=== PATIENT | female | born 1995 | race American Indian/Alaskan Native ===

== ENCOUNTER 2018-03-09 15:02 | Inpatient (IN) | payer MEDICAID ==
[2018-03-09 15:39] LABS: Basophils # (Auto) 0.1 K/mm3 (0.0-0.1); Basophils % (Auto) 0.8 % (0.0-1.8); Eosinophils % (Auto) 0.1 % (0.0-4.3); Hematocrit 31.9 % (30.3-42.9); Hemoglobin 10.4 gm/dl (10.1-14.3); Lymphocytes # (Auto) 1.4 K/mm3 (1.2-5.4); Lymphocytes % (Auto) 14.7 % (13.4-35.0); Mean Corpuscular HGB Conc 33 % (30-34); Mean Corpuscular Volume 73 fl (79-97); Monocytes # (Auto) 0.7 K/mm3 (0.0-0.8); Monocytes % (Auto) 7.2 % (0.0-7.3); Platelet Count 254 K/mm3 (140-440); Red Blood Count 4.35 M/mm3 (3.65-5.03); Red Cell Distribution Width 16.4 % (13.2-15.2)
[2018-03-09 15:47] LABS: Mean Corpuscular Hemoglobin 24 pg (28-32)
[2018-03-09 15:57] LABS: INR 0.94 (0.87-1.13)
[2018-03-09 15:58] LABS: Partial Thromboplastin Time 24.7 Sec. (24.2-36.6)
[2018-03-09 16:21] LABS: BUN/Creatinine Ratio 14; Blood Urea Nitrogen 10 mg/dL (7-17); Calcium 8.8 mg/dL (8.4-10.2); Hemolysis Index 30
[2018-03-09] MEDS ORDERED: BOOSTRIX IM ONE (16:24)
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
[2018-03-09] MEDS ORDERED: ZOFRAN IV PRN (17:56)
[2018-03-09] MEDS ORDERED: SODIUM CHLORIDE FLUSH SYRINGE 10 ML IV PRN (17:56)
[2018-03-09] MEDS ORDERED: PROVENTIL IH PRN (17:56)
[2018-03-09] MEDS ORDERED: TYLENOL PO PRN (17:56)
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
[2018-03-09] MEDS: PERCOCET 5/325 PO PRN (20:07)
[2018-03-10] MEDS: SODIUM CHLORIDE FLUSH SYRINGE 10 ML IV SCH ×3 (00:23→22:44)
[2018-03-10] MEDS: PERCOCET 5/325 PO PRN ×2 (00:23→19:47)
[2018-03-10 03:13] LABS: Bilirubin,Urine NEG (Negative); Blood,Urine NEG (Negative); Color,Urine Yellow (Yellow); Mucus,Urine FEW /HPF; Protein,Urine <15 mg/dL mg/dL (Negative); Urobilinogen,Urine < 2.0 mg/dL (<2.0)
[2018-03-10 03:16] LABS: Benzodiazepines Screen,Urine PRESUMPTIVE NEGATIVE; Cannabinoid Screen,Urine PRESUMPTIVE NEGATIVE; Cocaine Screen,Urine PRESUMPTIVE NEGATIVE; Methadone Screen,Urine PRESUMPTIVE NEGATIVE; Opiate Screen,Urine PRESUMPTIVE NEGATIVE
[2018-03-10 03:34] LABS: Amphetamine Screen,Urine PRESUMPTIVE POSITIVE
--- NOTE | 2018-03-10 08:23 | XRay Report ---
Chest 2 views: Compared to 03/09/18. History: Right pneumothorax 20%. Findings: Normal cardiomediastinal silhouette. Trachea is midline. No consolidation, pneumothorax or pleural effusion. Impression: No definite evidence of pneumothorax is noted.
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
[2018-03-10] MEDS ORDERED: TRIPLE ANTIBIOTIC TP ONE (15:03)
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
--- NOTE | 2018-03-10 15:46 | Event Note ---
Date: 03/10/[address] scanners and one of the CT scanners is down for repairs. The other CT scanner cannot be used for procedures while the other CT scanner is being repaired or the hospital will need to go on diversion. IR cannot perform any CT guided procedures at this time. Recommend alternative arrangements be made for chest tube insertion, such as by pulmonology or general surgery. I Contacted Dr. Garcia to inform him of the issue.
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
[2018-03-11 05:08] LABS: Basophils % (Auto) 0.5 % (0.0-1.8); Eosinophils # (Auto) 0.2 K/mm3 (0.0-0.4); Eosinophils % (Auto) 2.8 % (0.0-4.3); Hematocrit 30.5 % (30.3-42.9); Hemoglobin 9.7 gm/dl (10.1-14.3); Lymphocytes # (Auto) 2.3 K/mm3 (1.2-5.4); Lymphocytes % (Auto) 37.2 % (13.4-35.0); Mean Corpuscular HGB Conc 32 % (30-34); Mean Corpuscular Volume 75 fl (79-97); Monocytes # (Auto) 0.5 K/mm3 (0.0-0.8); Monocytes % (Auto) 8.4 % (0.0-7.3); Platelet Count 230 K/mm3 (140-440); Red Blood Count 4.07 M/mm3 (3.65-5.03); Red Cell Distribution Width 16.7 % (13.2-15.2)
[2018-03-11 05:09] LABS: Mean Corpuscular Hemoglobin 24 pg (28-32)
--- NOTE | 2018-03-11 09:16 | XRay Report ---
Chest 2 views: Compared to 03/10/18. History: Right pneumonia. Findings: Normal cardiomediastinal silhouette the trachea is midline. No consolidation, pneumothorax or pleural effusion. Impression: No acute cardiopulmonary findings.
[2018-03-11] MEDS: SODIUM CHLORIDE FLUSH SYRINGE 10 ML IV SCH ×2 (10:00→21:51)
--- NOTE | 2018-03-11 12:23 | Progress Note ---
Assessment and Plan Pt status quo. reviewed CxR pneumo still present. essentially unchanged. pt however does c/ o of some SOB on ambulation IR note noted. Can't insert Heimlich tube secondary to CT being down Pt really doesn't warrant chest tube and should do well with Heimlich rec - consult pulmonary for Heimlich tube placement ankle x-rays - no fx noted Objective Vital Signs - 12hr 03/11/18 03/11/18 03/11/18 03:54 07:55 11:43 Temperature 98.3 F 97.8 F 97.9 F Pulse Rate 60 57 L 60 Respiratory 18 20 18 Rate Blood Pressure 118/73 110/66 97/43 O2 Sat by Pulse 97 99 98 Oximetry - Labs 03/11/18 04:11 03/09/18 15:32
[2018-03-11] MEDS: PERCOCET 5/325 PO PRN (15:24)
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
[2018-03-12] MEDS: PERCOCET 5/325 PO PRN (09:58)
[2018-03-12] MEDS: SODIUM CHLORIDE FLUSH SYRINGE 10 ML IV SCH ×2 (10:02→22:26)
--- NOTE | 2018-03-12 10:49 | Progress Note ---
Assessment and Plan Pt resting comfortably in bed. still not able to ambulate secondary to L ankle pain and SOB on excertion no pulm eval noted. awaiting pulm eval for Hemleich tube insertion may need ortho eval to assess persistent L ankle pain Objective Vital Signs - 12hr 03/11/18 03/12/18 22:54 07:59 Temperature 98.8 F 97.8 F Pulse Rate 60 59 L Respiratory 18 16 Rate Blood Pressure 111/61 97/57 O2 Sat by Pulse 100 99 Oximetry - Labs 03/11/18 04:11 03/09/18 15:32
--- NOTE | 2018-03-12 12:26 | XRay Report ---
ROUTINE CHEST, TWO VIEWS: HISTORY: Follow up right pneumothorax. The small right apical pneumothorax has decreased from 2.1 cm in thickness to 1.3 cm in thickness since 03/11/18 at 0847 hours. The lungs are clear otherwise. Normal heart and mediastinal structures. Normal bony thorax. IMPRESSION: The right pneumothorax has decreased by 25-50% since yesterday's exam.
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
--- NOTE | 2018-03-13 09:23 | XRay Report ---
ROUTINE CHEST, TWO VIEWS: HISTORY: Follow up right pneumothorax. The small right apical pneumothorax appears unchanged measuring 1.2 cm in thickness at the right apex since yesterday's exam at 1214 hrs. The remainder of the exam remains within normal limits. IMPRESSION: No change.
[2018-03-13] MEDS: PERCOCET 5/325 PO PRN (09:44)
[2018-03-13] MEDS: SODIUM CHLORIDE FLUSH SYRINGE 10 ML IV SCH ×2 (09:48→22:32)
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
--- NOTE | 2018-03-13 14:07 | Progress Note ---
Assessment and Plan Pt status quo. Still c/o SOB despite just laying in bed and on O2 CxR - pneumo still present stable from gen surg perspective rec Heimlich tube also rec ortho eval r/o high ankle sprain. Pt still not able to properly ambulate on L ankle and will need ortho f/u Selected Entries 03/11/18 03/12/18 03/13/18 11:43 07:59 07:38 Temperature 97.9 F 97.8 F 97.7 F Pulse Rate 60 59 L 56 L Respiratory 18 16 Rate Blood Pressure 97/43 97/57 101/59 Laboratory Tests 03/11/18 04:11 WBC 6.1 Hgb 9.7 L Hct 30.5 Objective Vital Signs - 12hr 03/13/18 03/13/18 07:38 10:00 Temperature 97.7 F Pulse Rate 56 L Respiratory 20 Rate Blood Pressure 101/59 O2 Sat by Pulse 99 100 Oximetry - Labs 03/11/18 04:11 03/09/18 15:32
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
--- NOTE | 2018-03-13 14:18 | Cat Scan Report ---
FINAL REPORT EXAM: CT CHEST W CON HISTORY: right pneumothorax TECHNIQUE: Chest CT with intravenous contrast PRIORS: None. FINDINGS: There is anterior right pneumothorax estimated approximately 20 percent. No pulmonary infiltrates are identified no pleural fluid collections are seen. No evidence for mediastinal mass or pathologic lymph node enlargement. Heart great vessels are unremarkable. There are no acute skeletal findings. Visualized portion of the upper abdomen is unremarkable. IMPRESSION: Anterior right pneumothorax estimated approximately 20 percent
--- NOTE | 2018-03-13 14:27 | Cat Scan Report ---
FINAL REPORT EXAM: CT CHEST WO CON HISTORY: pneumothorax TECHNIQUE: CT chest without contrast PRIORS: Comparison is dated March 09, 2018 FINDINGS: Again identified is a right pneumothorax persistent from the prior exam slightly decreased in size estimated approximately 15 percent. There is focal confluent density now present within the inferior right lower lobe consistent with pulmonary infiltrate/atelectasis. No evidence for mediastinal shift no mediastinal hematoma or pathologic lymph node enlargement. Left lung is unremarkable without evidence for infiltrate or pneumothorax No acute abnormality seen on nonenhanced images of the upper abdomen IMPRESSION: Persistent right pneumothorax slightly decreased in size New infiltrate/atelectasis within the right lower lobe
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
--- NOTE | 2018-03-13 16:31 | Event Note ---
Date: 03/13/[address] Sahu. We discussed the case and believe that another day of high dose O2 should be attempted. If pneumothorax does not resolve, then can consider placement of a small chest tube on Tuesday.
--- NOTE | 2018-03-14 10:36 | Progress Note ---
Assessment and Plan Pt status quo condition unchanged IR note noted will sign off as per IR & pulm also recommend ortho eval Objective Vital Signs - 12hr 03/14/18 03/14/18 03/14/18 00:06 06:33 07:38 Temperature 98.3 F 98.2 F 98.2 F Pulse Rate 56 L 61 57 L Respiratory 24 20 20 Rate Blood Pressure 105/40 112/65 105/60 O2 Sat by Pulse 99 100 100 Oximetry 03/14/18 08:40 Temperature Pulse Rate Respiratory Rate Blood Pressure O2 Sat by Pulse 100 Oximetry - Labs 03/11/18 04:11 03/09/18 15:32
[2018-03-14] MEDS: SODIUM CHLORIDE FLUSH SYRINGE 10 ML IV SCH ×2 (11:19→22:15)
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
--- NOTE | 2018-03-15 09:07 | Cat Scan Report ---
CT CHEST WITHOUT CONTRAST INDICATION: Right pneumothorax. COMPARISON: 03/11/2018 CT. FINDINGS: Noncontrast chest CT now fails to demonstrate a significant pneumothorax on the right. Improved bibasilar atelectasis, though mild remains, more so on the right as also minimal extreme right lung base pleural fluid as on axial image 108, series 2. Otherwise unremarkable lungs. Stable, normal heart size. No pericardial or left pleural effusion. Anemia suspected. Assessment of the great vessels and for detecting subtle lymphadenopathy limited due to lack of IV contrast. No aortic aneurysm however. No size significant axillary lymphadenopathy. Normal thyroid. Mild nonspecific distal esophageal wall prominence/thickening, not excluded for gastroesophageal reflux and/or hiatal hernia, amongst others. Imaged upper abdomen demonstrates left hepatic lobe tip touching the spleen in the left upper quadrant. Slight thoracic levocurvature apex about T6. Umbilical and bilateral nipple piercing ornaments. CONCLUSION: No significant right pneumothorax at this time with various other incidental findings, as above. Please correlate. Thank you for the opportunity to participate in this patient's care.
--- NOTE | 2018-03-15 09:45 | Event Note ---
Date: 03/15/[address] scan. Right pneumothorax resolved. No need for chest tube. Diet restored. Procedure cancelled.
[2018-03-15] MEDS: SODIUM CHLORIDE FLUSH SYRINGE 10 ML IV SCH (09:50)
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
[2018-03-16] MEDS: SODIUM CHLORIDE FLUSH SYRINGE 10 ML IV SCH (01:58)
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
[2018-03-16 15:55] VITALS: BP 114/77
== END 2018-03-16 17:45 | disposition home or self-care (01) | DRG 199 ==
LOC: ED 15:02 → 3A 17:56
PROVIDERS: ADMIT Internal Medicine; ATTEND Internal Medicine
PROC: 3E0234Z Introduction of Serum, Toxoid and Vaccine into Muscle, Percutaneous Approach (ICD-10-PCS; principal; 2018-03-09)
DX: S27.0XXA Traumatic pneumothorax, initial encounter (principal); J96.01 Acute respiratory failure with hypoxia; S21.111A Laceration without foreign body of right front wall of thorax without penetration into thoracic cavity, initial encounter; S93.401A Sprain of unspecified ligament of right ankle, initial encounter; Y93.89 Activity, other specified; Y92.89 Other specified places as the place of occurrence of the external cause; Y99.8 Other external cause status; F17.200 Nicotine dependence, unspecified, uncomplicated; X99.1XXA Assault by knife, initial encounter; F12.90 Cannabis use, unspecified, uncomplicated; D64.9 Anemia, unspecified; Z23 Encounter for immunization; Z71.6 Tobacco abuse counseling; Z53.8 Procedure and treatment not carried out for other reasons
CPT/HCPCS: 36415; 71045; 71046; 71250; 71260; 80048; 80307; 80320; 81001; 82550; 84484; 84703; 85025; 85610; 85730; 86850; 86900; 86901; 90471; 90715; 93005; 93010; 94760; 99406; A6250; G0480; J2405; Q9967